=== PATIENT | male | born 1980 | race Caucasian/White ===

== ENCOUNTER 2021-12-31 10:34 | Outpatient (CLI) | payer BC, SELFPAY ==
[2021-12-31 17:41] LABS: Albumin* 4.8 g/dL (3.3-5.0); Chloride* 101 mmol/L (96-114); Potassium* 4.2 mmol/L (3.6-5.1); Sodium* 138 mmol/L (135-149)
[2021-12-31 17:43] LABS: Estimated Glomerular Filt Rate 97 ml/min
[2021-12-31 17:44] LABS: Alanine Aminotransferase* 22 U/L (4-50); Alkaline Phosphatase* 56 U/L (40-150); Aspartate Amino Transferase* 25 U/L (12-35); Bilirubin Direct* 0.3 mg/dL (0.0-0.5); Bilirubin Total* 0.7 mg/dL (0.1-1.5); Blood Urea Nitrogen* 14 mg/dL (5-24); Calcium* 9.6 mg/dL (8.4-10.6); Carbon Dioxide* 30 mmol/L (20-32); Glucose* 90 mg/dL (60-115); Lipase* 53 U/L (23-300); Total Protein* 7.1 g/dL (6.0-8.3)
== END 2021-12-31 10:35 | disposition home or self-care (01) ==
PROVIDERS: PCP Family Medicine; Visit Provider Family Medicine
DX: I10 Essential (primary) hypertension (principal); R10.9 Unspecified abdominal pain
CPT/HCPCS: 80048; 80076; 83690

== ENCOUNTER 2022-02-27 11:01 | Outpatient (CLI) | payer BC, SELFPAY ==
[2022-02-27 18:24] LABS: Chloride* 104 mmol/L (96-114); Potassium* 4.3 mmol/L (3.6-5.1); Sodium* 140 mmol/L (135-149)
[2022-02-27 18:27] LABS: Blood Urea Nitrogen* 17 mg/dL (5-24); Carbon Dioxide* 27 mmol/L (20-32); Estimated Glomerular Filt Rate 96 ml/min
[2022-02-27 18:28] LABS: Calcium* 9.2 mg/dL (8.4-10.6); Glucose* 86 mg/dL (60-115)
[2022-02-27 18:42] LABS: Free T4 Free Thyroxine* 0.99 ng/dL (0.70-1.85)
== END 2022-02-27 11:02 | disposition home or self-care (01) ==
LOC: LONREF 11:01
PROVIDERS: PCP Family Medicine; Visit Provider Family Medicine
DX: R63.4 Abnormal weight loss (principal)
CPT/HCPCS: 80048; 84439; 84443

== ENCOUNTER 2022-09-30 13:23 | Outpatient (CLI) | payer BC, SELFPAY | END 2022-09-30 13:24 | disposition home or self-care (01) | PROVIDERS: PCP Family Medicine; Visit Provider Family Medicine | DX: R53.83 Other fatigue (principal); I10 Essential (primary) hypertension; Z86.39 Personal history of other endocrine, nutritional and metabolic disease | CPT/HCPCS: 84439 ==

== ENCOUNTER 2023-06-10 10:50 | Outpatient (CLI) | payer BC, SELFPAY | END 2023-06-10 10:51 | disposition home or self-care (01) | PROVIDERS: PCP Family Medicine; Visit Provider Family Medicine | DX: I10 Essential (primary) hypertension (principal); R53.83 Other fatigue; M79.10 Myalgia, unspecified site; R68.82 Decreased libido | CPT/HCPCS: 80048; 84403; 84439; 84443; 86140 ==

== ENCOUNTER 2023-08-08 13:30 | Outpatient (CLI) | payer BC, SELFPAY | END 2023-08-08 13:31 | disposition home or self-care (01) | LOC: KYNREF 13:31 | PROVIDERS: PCP Family Medicine; Visit Provider Nurse Practitioner Family | DX: K62.5 Hemorrhage of anus and rectum (principal) | CPT/HCPCS: 85025 ==

== ENCOUNTER 2023-08-18 07:48 | Outpatient (CLI) | payer BC, SELFPAY ==
--- NOTE | 2023-08-18 09:29 | W.ANESCHARGE ---
Anesthesia Charges Start Date/Time Anesthesia Start Date: 08/18/23 Anesthesia Start Time: 09:00 Stop Date/Time Anesthesia Stop Date: 08/18/23 Anesthesia Stop Time: 09:30
--- NOTE | 2023-08-18 09:31 | W.ANESCHARGE ---
Anesthesia Charges Start Date/Time Anesthesia Start Date: 08/18/23 Anesthesia Start Time: 09:00 Stop Date/Time Anesthesia Stop Date: 08/18/23 Anesthesia Stop Time: 09:30
== END 2023-08-18 07:49 | disposition home or self-care (01) ==
LOC: OP CLINIC 07:49
PROVIDERS: PCP Family Medicine; Visit Provider Surgery
DX: R19.4 Change in bowel habit (principal); K62.1 Rectal polyp; K64.8 Other hemorrhoids; K62.89 Other specified diseases of anus and rectum
CPT/HCPCS: 00811; 45385; 88305; J2704

== ENCOUNTER 2024-05-08 20:48 | Emergency (ER) | payer BC, SELFPAY ==
[2024-05-08 21:03] VITALS: BP 135/94; PULSE 84; RESP 16; TEMP 38.7; O2SAT 97; BMI 27.0
--- NOTE | 2024-05-08 21:17 | ED.GENADULT ---
HPI - General Adult General Chief complaint: Fever Stated complaint: SOB, nausea, extreme headache Time Seen by Provider: 05/08/24 21:02 History of Present Illness HPI narrative: c/o BATISTA and Nausea pt. presents today with headache nausea but no vomiting. pt. has taken 800 mg Ibu. about 3 hours ago with no relief in pain. pt. states he feels like he is having difficulty getting a full breath 44-year-old man presenting to the emergency department with complaint of headache and some nausea. Began fairly intensely about 3 hours ago. Took 800 mg of ibuprofen without relief. Does have some body aches. No rashes. No measured fever. On triage is noted to have a fever of 101.6. No visual disturbances. Does not usually get headaches maybe 2 or 3 a year. No focal weakness. No particular exposures. He says that his headache is bilaterally periorbital and into his temples. Has not been particularly congested. He does feel that he is dehydrated. Related Data Previous Rx's ?Medication ?Instructions ?Recorded losartan 50 mg tablet 50 mg PO QDAY #90 tabs 06/10/23 alprazolam 0.5 mg tablet 0.5 - 1 mg (1 - 2 x 0.5 mg) PO TID 04/05/24 PRN anxiety #30 tabs Allergies Allergy/AdvReac Type Severity Reaction Status Date / Time No Known Drug Allergies Allergy Verified 05/09/24 14:21 Review of Systems Status of ROS: Reports: 6 or more systems reviewed and unremarkable except as noted in History and below [facility] Medical History History of hyperthyroidism ?Z86.39 - Personal history of other endocrine, nutritional and metabolic disease (ICD-10) Surgical History Status post orchiectomy ?Z90.79 - Acquired absence of other genital organ(s) (ICD-10) Status post tonsillectomy and adenoidectomy ?Z90.89 - Acquired absence of other organs (ICD-10) Social History Smoking Status: Current every day smoker What tobacco products do you use: cigarettes Do you use any of these nicotine containing products: None Second hand tobacco smoke exposure: No How often do you have a drink containing alcohol: never How often do you have six or more drinks on one occasion: Never AUDIT-C Alcohol total score: 0 Non-prescribed substance use: denies use service: No Exam Narrative: Exam Narrative: Pleasant. NAD. Appears generally uncomfortable. Shielding his eyes little bit from the light. Cranial nerves 2-12 are intact. Pupils are 3 mm and equal in appropriately reactive. Appears mildly congested in the nasopharynx. TMs are clear. All extremities without difficulties. No peripheral edema. He is well-perfused. Later exam does indicate some soreness in the paracervical and trapezial musculature left greater than right. Other than headache does not demonstrate meningeal with negative Brudzinski. Heart in regular rate and rhythm. Lungs are clear. Upper abdomen is soft and nontender. Const: Vital Signs, click to edit/add: Vital Signs - 24 hr 05/08/24 21:03 Temperature 101.6 F H Pulse Rate [Pulse Oximeter] 84 Respiratory Rate 16 Blood Pressure [Ri ght Upper Arm] 135/94 H Pulse Oximetry 97 Documenting provider has reviewed patient's vital signs: yes Course Vital Signs Vital signs: Initial Vital Signs Respiratory Effort Normal, Spontaneous, Non-Labored 05/08/24 21:00 Respiratory Depth Normal 05/08/24 21:00 Sepsis Recent Fever Within 48 Hours Yes 05/08/24 21:00 Sepsis Action Taken by Nursing No Action Required 05/08/24 21:00 Vital Signs Temperature 101.6 F H 05/08/24 21:03 Pulse Rate 84 05/08/24 21:03 Respiratory Rate 16 05/08/24 21:03 Blood Pressure 135/94 H 05/08/24 21:03 Pulse Oximetry 97 05/08/24 21:03 Temperature 101.6 F H 05/08/24 21:03 Pulse Rate 84 05/08/24 21:03 Respiratory Rate 16 05/08/24 21:03 Blood Pressure 135/94 H 05/08/24 21:03 Pulse Oximetry 97 05/08/24 21:03 Medications Administered Medications: Discontinued Medications Generic Name Dose Route Start Last Admin Trade Name Freq PRN Reason Stop Dose Admin Sodium Chloride 1,000 mls @ 1,000 mls/hr 05/08/24 21:32 05/08/24 22:00 0.9 % Sodium Chloride 1000 Ml IV 05/08/24 22:31 Infused .Q1H ONE Infusion Ketorolac Tromethamine 30 mg 05/08/24 21:32 05/08/24 21:40 Ketorolac 30 Mg/Ml Inj IVP 05/08/24 21:33 30 mg ONCE ONE Administration Ondansetron HCl 4 mg 05/08/24 21:32 05/08/24 21:40 Ondansetron 2 Mg/Ml Inj IVP 05/08/24 21:33 4 mg ONCE ONE Administration Medical Decision Making MDM Narrative Medical decision making narrative: Appears to have fever and associated headache. Considering community prevalence I would expect to diagnosis influenza A are possibly COVID. I would screen for these. Did offer treatment for symptoms. I do not think has meningitis otherwise at this time. He is mentating clearly as well without evidence of encephalitis. Probably has some component of tension headache though with periorbital sinus very discomfort may be sinus related. Does not demonstrate symptoms otherwise of cluster headache and this is not unilateral. He does mention this is the worst headache he has had. I would focus on infectious/illness as opposed to intracranial event like a bleed pending improvement in treatment. IV was initiated. Was given normal saline, ketorolac and Zofran. Swabs are negative. On reassessment was improved. Fever resolved. Still with some residual headache around his eyes we discussed potential benefit of intranasal lidocaine. I did mist 1% lidocaine into both nares. This resulted in some further improvement. He felt he could go home and continue to monitor. He is wondering what he can take for headache. I would focus on fever control as well. Hydrate. See patient discharge plan for further discussion Focus on hydration. You might benefit from pseudoephedrine for decongestion. I like the 12 hour formulation myself Sleep under the mist of a cool mist humidifier Can take up to 800 mg ibuprofen up to 1000 mg of acetaminophen per dose; these can be combined. Alternative the ibuprofen might be up to 500 mg naproxen 2 times daily. Otherwise for headache I take Excedrin equivalent sometimes has discussed. Zofran from [facility] for nausea Medical Records Medical records reviewed: Yes I reviewed the patient's medical records Lab Data Lab results reviewed: Yes I reviewed the patient's lab results Labs: Lab Results 05/08/24 Range/Units 21:01 SARS-CoV-2 (PCR) Negative SARS-CoV-2 (Negative) Influenza Type A (PCR) Negative PCR FLU A (Negative) Influenza Type B (PCR) Negative PCR FLU B (Negative) RSV (PCR) Negative PCR RSV (Negative) Discharge Plan Discharge Clinical Impression: Headache, Myalgia, Fever Patient Disposition: Home w/ Parent or Adult Condition: Improved Additional Instructions: Focus on hydration. You might benefit from pseudoephedrine for decongestion. I like the 12 hour formulation myself Sleep under the mist of a cool mist humidifier Can take up to 800 mg ibuprofen up to 1000 mg of acetaminophen per dose; these can be combined. Alternative the ibuprofen might be up to 500 mg naproxen 2 times daily. Otherwise for headache I take Excedrin equivalent sometimes has discussed. Zofran from [facility] for nausea Prescriptions: No Action losartan 50 mg tablet 50 mg PO QDAY Qty: 90 3RF alprazolam 0.5 mg tablet 0.5 - 1 mg PO TID PRN (Reason: anxiety) Qty: 30 2RF Follow Up/Referrals: Everett Roldan MD [Primary Care Provider] - Stand Alone Forms: [employer] Info Instructions
[2024-05-08] MEDS: 0.9 % SODIUM CHLORIDE 1000 ml 1,000 ML IV (21:40)
[2024-05-08] MEDS: KETOROLAC 30 MG/ML inj IVP (21:40)
[2024-05-08] MEDS: ONDANSETRON 2 MG/ML inj 4 MG IVP (21:40)
[2024-05-08 21:51] LABS: PCR FLU A Negative PCR FLU A (Negative); PCR FLU B Negative PCR FLU B (Negative); PCR RSV Negative PCR RSV (Negative); SARS PCR* Negative SARS-CoV-2 (Negative)
== END 2024-05-08 22:42 | disposition home or self-care (01) ==
PROVIDERS: Emergency Provider Family Medicine; PCP Family Medicine
DX: R51.9 Headache, unspecified (principal); R50.9 Fever, unspecified
CPT/HCPCS: 87631; 96374; 96375; 99284; J1885; J2405; J7030

== ENCOUNTER 2024-05-09 14:02 | Emergency (ER) | payer BC, SELFPAY ==
[2024-05-09] VITALS (22 sets, daily range): BP systolic 125–144; BP diastolic 77–91; PULSE 62–77; RESP 12–18; TEMP 36.9; O2SAT 93–99; BMI 27.0
--- NOTE | 2024-05-09 14:47 | CRLHL7_ITS ---
For Patients: As a result of the Century Cures Act, medical imaging exams and procedure reports are released immediately into your electronic medical record. You may view this report before your referring provider. If you have questions, please contact your health care provider. Indication: Headache. Technique: CT of the brain was performed without intravenous contrast. Comparison: MR brain 12/01/2020. Findings: No acute blurring of the weems-white differentiation. There is no intracranial hemorrhage. The ventricles are proportionate to the cerebral sulci. The 4th ventricle is midline. Basal cisterns appear patent. No abnormal extra-axial fluid collection identified. There is no intracranial mass, mass effect or midline shift identified. No depressed calvarial fracture. Impression: No acute intracranial process. Please note that all CT scans at this facility use dose modulation, iterative reconstruction, and/or weight-based dosing when appropriate to reduce radiation dose to as low as reasonably achievable. Dictated by Félix Rubio MD @ 05/09/2024 3:36:09 PM (Electronically Signed)
--- NOTE | 2024-05-09 14:48 | ED.HA ---
HPI - Headache General Chief Complaint: Headache/Migraine Stated Complaint: piercing headache, nausea Time Seen by Provider: 05/09/24 14:05 History of Present Illness HPI Narrative: This 44-year-old male comes in with severe headache including nausea and light sensitivity. He was here last evening with same headache and had temporary relief with some IV medicines are administered at that time. He states that he does not normally get headaches. Perhaps twice a year he gets a headache that is easily treated with [id number] medicines. He does not report any fevers. He has pain in his upper neck but not down into his back. He does not report any neurologic changes. Related Data Previous Rx's ?Medication ?Instructions ?Recorded losartan 50 mg tablet 50 mg PO QDAY #90 tabs 06/10/23 alprazolam 0.5 mg tablet 0.5 - 1 mg (1 - 2 x 0.5 mg) PO TID 04/05/24 PRN anxiety #30 tabs Allergies Allergy/AdvReac Type Severity Reaction Status Date / Time No Known Drug Allergies Allergy Verified 05/09/24 14:21 Review of Systems Status of ROS: Reports: 10 or more systems reviewed and unremarkable except as noted in History and below Narrative: Constitutional: No fevers, no weight gain or loss. Eyes: No discharge. No vision changes. HENT: No congestion, no sore throat, no ear pain. Cardiovascular: No chest pain, no palpitations. Respiratory: No shortness of breath, no wheezes, no cough. Gastrointestinal: No abdominal pain, no vomiting, no diarrhea. Genitourinary: No dysuria, no hematuria. Musculoskeletal: Normal range of motion. Skin: No rashes, no pruritis. Neurological: No dizziness, weakness, sensory change, speech change. Endo/Heme/Allergies: No bruising or bleeding. No polydipsia. Pysch: no suicidality, no anxiety, no insomnia. All other systems reviewed and are negative. [facility] Medical History History of hyperthyroidism ?Z86.39 - Personal history of other endocrine, nutritional and metabolic disease (ICD-10) Surgical History Status post orchiectomy ?Z90.79 - Acquired absence of other genital organ(s) (ICD-10) Status post tonsillectomy and adenoidectomy ?Z90.89 - Acquired absence of other organs (ICD-10) Social History Smoking Status: Current every day smoker What tobacco products do you use: cigarettes Do you use any of these nicotine containing products: None Second hand tobacco smoke exposure: No How often do you have a drink containing alcohol: never How often do you have six or more drinks on one occasion: Never AUDIT-C Alcohol total score: 0 Non-prescribed substance use: denies use service: No Exam Narrative: Exam Narrative: Constitutional: Well-developed, well-nourished, no acute distress. HEENT: Normocephalic, atraumatic. Neck: Normal range of motion. Nontender. Supple. Heart: Regular. No murmurs. Normal rate. Intact distal pulses. Lungs: Clear to auscultation. No chest discomfort. No wheezes, rhonchi, or rales. Abdomen: Normal bowel sounds. Nontender. No rebound tenderness. Genitalia: Deferred. Back: No midline tenderness. Normal range of motion. Extremities: Normal range of motion. No injury. Skin: Intact. No rash. Warm. No erythema or pallor. Neurologic: No altered sensation. No weakness. Alert and oriented. No facial asymmetry. Psychiatric: No suicidality. No anxiety or depression. No insomnia. Nursing notes and vitals signs are reviewed. Const: Vital Signs, click to edit/add: Vital Signs - 24 hr 05/09/24 14:21 05/09/24 15:41 05/09/24 15:45 Temperature 98.4 F Pulse Rate 62 65 Pulse Rate [Pulse Oximeter] 62 Respiratory Rate 18 Blood Pressure Blood Pressure [Ri ght Upper Arm] 141/89 H Pulse Oximetry 98 97 97 Oxygen Delivery Me thod Room Air 05/09/24 16:00 05/09/24 16:05 05/09/24 16:06 Temperature Pulse Rate 62 69 63 Pulse Rate [Pulse Oximeter] Respiratory Rate 12 Blood Pressure 144/81 H Blood Pressure [Ri ght Upper Arm] Pulse Oximetry 97 97 97 Oxygen Delivery Me thod 05/09/24 16:15 05/09/24 16:30 05/09/24 16:45 Temperature Pulse Rate 69 69 77 Pulse Rate [Pulse Oximeter] Respiratory Rate Blood Pressure Blood Pressure [Ri ght Upper Arm] Pulse Oximetry 96 96 98 Oxygen Delivery Me thod 05/09/24 17:00 05/09/24 17:15 05/09/24 17:30 Temperature Pulse Rate 71 76 65 Pulse Rate [Pulse Oximeter] Respiratory Rate Blood Pressure Blood Pressure [Ri ght Upper Arm] Pulse Oximetry 96 97 96 Oxygen Delivery Me thod 05/09/24 17:45 05/09/24 18:00 05/09/24 18:15 Temperature Pulse Rate 72 73 70 Pulse Rate [Pulse Oximeter] Respiratory Rate Blood Pressure Blood Pressure [Ri ght Upper Arm] Pulse Oximetry 96 96 94 Oxygen Delivery Me thod 05/09/24 18:17 05/09/24 18:44 Temperature 98.5 F Pulse Rate Pulse Rate [Pulse Oximeter] Respiratory Rate Blood Pressure 125/77 Blood Pressure [Ri ght Upper Arm] Pulse Oximetry Oxygen Delivery Me thod Course Vital Signs Vital signs: Initial Vital Signs Temperature 98.4 F 05/09/24 14:21 Temperature Source Temporal Artery Scan 05/09/24 14:21 Pulse Rate 62 05/09/24 14:21 Pulse Rhythm Regular 05/09/24 14:21 Respiratory Rate 18 05/09/24 14:21 Blood Pressure 141/89 H 05/09/24 14:21 Blood Pressure Mean 106 H 05/09/24 14:21 Blood Pressure Position Semi-Fowlers 05/09/24 14:21 Pulse Oximetry 98 05/09/24 14:21 Oxygen Delivery Method Room Air 05/09/24 14:21 Vital Signs Temperature 98.4 F 05/09/24 14:21 Pulse Rate 62 05/09/24 14:21 Respiratory Rate 18 05/09/24 14:21 Blood Pressure 141/89 H 05/09/24 14:21 Pulse Oximetry 98 05/09/24 14:21 Oxygen Delivery Method Room Air 05/09/24 14:21 Temperature 98.5 F 05/09/24 18:44 Pulse Rate 70 05/09/24 18:15 Respiratory Rate 12 05/09/24 16:05 Blood Pressure 125/77 05/09/24 18:17 Pulse Oximetry 94 05/09/24 18:15 Oxygen Delivery Method Room Air 05/09/24 14:21 Medications Administered Medications: Generic Name Dose Route Start Last Admin Trade Name Cheng PRN Reason Stop Dose Admin Ketamine HCl 20 mg/ Sodium 100.2 mls @ 300.6 mls/hr 05/09/24 16:53 05/09/24 18:11 Chloride IVPB 05/09/24 16:54 300.6 mls/hr ONCE ONE Administration Discontinued Medications Generic Name Dose Route Start Last Admin Trade Name Cheng PRN Reason Stop Dose Admin Diphenhydramine HCl 50 mg 05/09/24 14:46 05/09/24 15:21 Diphenhydramine 50 Mg/Ml Inj IVP 05/09/24 14:47 50 mg ONCE ONE Administration Sodium Chloride 500 mls @ 500 mls/hr 05/09/24 14:46 05/09/24 16:21 0.9 % Sodium Chloride 500 Ml IV 05/09/24 15:45 Infused .Q1H ONE Infusion Ketorolac Tromethamine 30 mg 05/09/24 14:46 05/09/24 15:20 Ketorolac 30 Mg/Ml Inj IVP 05/09/24 14:47 30 mg ONCE ONE Administration Methylprednisolone Sodium Succinate 125 mg 05/09/24 14:46 05/09/24 15:20 Methylprednisolone Sod Succ 62.5 Mg/Ml (125) IVP 05/09/24 14:47 125 mg ONCE ONE Administration Ondansetron HCl 4 mg 05/09/24 14:46 05/09/24 15:20 Ondansetron 2 Mg/Ml Inj IVP 05/09/24 14:47 4 mg ONCE ONE Administration MDM - Headache MDM Narrative Medical decision making narrative: This patient was in last evening in returns again today because of severe headache. He does arrive here with normal vital signs. He does not describe any symptoms of infection. He received treatments last evening that helped him temporarily but returns today because his headache is persistent and return back to previous severe state. An IV was established where he received Toradol 30 mg, Benadryl 50 mg, Zofran 4 mg, and methylprednisolone 125 mg. This did not help him much however he was able to sleep. He then received ketamine 20 mg again without much relief. His CT scan of his head and blood results all returned with normal findings. He is okay to be discharged home. I did provide an [facility] prescription for Toradol. He states that he does have Zofran at home. Lab Data Labs: Lab Results 05/09/24 Range/Units 15:00 WBC 8.95 (4.50-11.00) K/uL RBC 4.51 (4.30-5.90) m/uL Hgb 14.7 (13.5-17.5) gm/dL Hct 42.6 (37.0-53.0) % MCV 95 (80-100) fL MCH 33 (26-34) pg MCHC 35 (32-36) gm/dL RDW Coeff of Paul 12.5 (11.5-15.5) % Plt Count 165 (140-440) K/uL Neut % (Auto) 77.7 H (42.0-72.0) % Lymph % (Auto) 10.3 L (20-44) % Hamblen % (Auto) 10.8 (0.0-11.0) % Eos % (Auto) 0.4 (0.0-7.0) % Baso % (Auto) 0.2 (0.0-3.0) % Neut # (Auto) 7.00 (1.7-7.0) K/uL Lymph # (Auto) 0.90 (0.90-2.90) K/uL Hamblen # (Auto) 1.00 H (0.00-0.90) K/UL Eos # (Auto) 0.04 (0.00-0.50) K/uL Baso # (Auto) 0.02 (0.00-0.30) K/uL Abs Immat Gran (auto) 0.05 (0.00-0.30) K/uL Imm/Tot Granulo (auto) 0.6 % Imaging Data CT scan - head: Radiologist's impression: No acute intracranial process. Discharge Plan Discharge Clinical Impression: Migraine Patient Disposition: Home, Self-Care Condition: Stable Additional Instructions: Take medication as prescribed. Follow up with MD return if worsening. Prescriptions: No Action losartan 50 mg tablet 50 mg PO QDAY Qty: 90 3RF alprazolam 0.5 mg tablet 0.5 - 1 mg PO TID PRN (Reason: anxiety) Qty: 30 2RF Follow Up/Referrals: Everett Roldan MD [Primary Care Provider] - Stand Alone Forms: [employer] Info Instructions
[2024-05-09] MEDS: 0.9 % SODIUM CHLORIDE 500 ML 500 ML IV (15:20)
[2024-05-09] MEDS: METHYLPREDNISOLONE SOD SUCC 62.5 MG/ML (125) 125 MG IVP (15:20)
[2024-05-09] MEDS: ONDANSETRON 2 MG/ML inj 4 MG IVP (15:20)
[2024-05-09] MEDS: KETOROLAC 30 MG/ML inj IVP (15:20)
[2024-05-09 15:21] LABS: Basophils Absolute Auto 0.02 K/uL (0.00-0.30); Basophils Percent Auto 0.2 % (0.0-3.0); Eosinophils Absolute Auto 0.04 K/uL (0.00-0.50); Eosinophils Percent Auto 0.4 % (0.0-7.0); Hematocrit 42.6 % (37.0-53.0); Hemoglobin* 14.7 gm/dL (13.5-17.5); Immature Granulocytes Abs Auto 0.05 K/uL (0.00-0.30); Immature Granulocytes Pct Auto 0.6 %; Lymphocytes Percent Auto 10.3 % (20-44); Mean Corpuscular HGB Conc 35 gm/dL (32-36); Mean Corpuscular Hemoglobin 33 pg (26-34); Mean Corpuscular Volume 95 fL (80-100); Monocytes Percent Auto 10.8 % (0.0-11.0); Neutrophils Percent Auto 77.7 % (42.0-72.0); Platelet Count* 165 K/uL (140-440); RDW Coefficient of Variation % 12.5 % (11.5-15.5); Red Blood Count 4.51 m/uL (4.30-5.90); White Blood Count* 8.95 K/uL (4.50-11.00)
[2024-05-09] MEDS: diphenhydrAMINE 50 MG/ML inj IVP (15:21)
[2024-05-09 15:24] LABS: Slide Review Reflex No
[2024-05-09] MEDS: KETAMINE HCL 20 MG in 0.9 % SODIUM CHLORIDE 100 ml 100 ML 300.6 MG IVPB (18:11)
== END 2024-05-09 19:14 | disposition home or self-care (01) ==
PROVIDERS: Emergency Provider Emergency Medicine Emergency Medical Services; PCP Family Medicine
DX: G43.909 Migraine, unspecified, not intractable, without status migrainosus (principal)
CPT/HCPCS: 36415; 70450; 85025; 96365; 96375; 99284; J1200; J1885; J2405; J2919; J3490; J7030

== ENCOUNTER 2024-05-17 11:58 | Emergency (ER) | payer BC, SELFPAY ==
[2024-05-17 12:05] VITALS: BP 147/98; PULSE 81; RESP 18; TEMP 37.7; O2SAT 97; BMI 26.3
[2024-05-17 12:20] VITALS: BP 131/100; PULSE 76; TEMP 37.2; O2SAT 94
--- NOTE | 2024-05-17 13:14 | CRLHL7_ITS ---
For Patients: As a result of the Century Cures Act, medical imaging exams and procedure reports are released immediately into your electronic medical record. You may view this report before your referring provider. If you have questions, please contact your health care provider. Indication: Severe headache times several days Technique: Multiplanar, multisequence MR images of the brain were obtained without the administration of IV contrast. Comparison: CT head May 09, 2024 and MRI brain December 01, 2020 Findings: On midline sagittal T1 images there are preserved flow voids within the sagittal sinuses. The corpus callosum is preserved in signal and contour. The pituitary gland is unremarkable without evidence of remodeling of the sella turcica. There is no significant cerebellar tonsillar ectopia. On diffusion-weighted sequences, there is no evidence of acute or subacute infarct. On blood sensitive sequences, there is no evidence of or chronic hemorrhage. There is minimal nonspecific T2/FLAIR subcortical and periventricular hyperintensity appreciated. Otherwise, the brain parenchyma is preserved in signal intensity for age. The flow voids at the skull base are unremarkable. The orbits and their contents are within normal limits. The paranasal sinuses are clear. The mastoid air cells are clear. Impression: 1. Minimal nonspecific chronic small-vessel disease changes of the white matter similar to remote prior without evidence of new acute intracranial abnormality. Dictated by Edison Lucero MD @ 05/17/2024 4:26:26 PM (Electronically Signed)
[2024-05-17 13:37] LABS: Basophils Percent Auto 0.3 % (0.0-3.0); Eosinophils Percent Auto 0.4 % (0.0-7.0); Hematocrit 44.9 % (37.0-53.0); Hemoglobin* 15.3 gm/dL (13.5-17.5); Immature Granulocytes Pct Auto 0.7 %; Lymphocytes Percent Auto 14.6 % (20-44); Mean Corpuscular HGB Conc 34 gm/dL (32-36); Mean Corpuscular Hemoglobin 32 pg (26-34); Mean Corpuscular Volume 95 fL (80-100); Monocytes Percent Auto 4.5 % (0.0-11.0); Neutrophils Percent Auto 79.5 % (42.0-72.0); Platelet Count* 287 K/uL (140-440); RDW Coefficient of Variation % 12.7 % (11.5-15.5); Red Blood Count 4.72 m/uL (4.30-5.90); White Blood Count* 11.69 K/uL (4.50-11.00)
[2024-05-17 13:42] LABS: Slide Review Reflex No
[2024-05-17 14:00] LABS: C Reactive Protein* < 0.5 mg/dL (0.5-1.0)
[2024-05-17 14:12] LABS: Free T4 Free Thyroxine* 1.07 ng/dL (0.70-1.85)
[2024-05-17 14:23] LABS: Erythrocyte SedimentationRate* 2 mm/hr (2-15)
[2024-05-17 14:29] VITALS: BP 124/79; PULSE 71; RESP 18; TEMP 37.6; O2SAT 95
--- NOTE | 2024-05-17 16:00 | ED.HA ---
HPI - Headache General Chief Complaint: Headache/Migraine Stated Complaint: Migraine/Shingles Time Seen by Provider: 05/17/24 12:24 History of Present Illness HPI Narrative: This 44-year-old male comes in with persistent severe headache. He has been seen a couple times here in the emergency department with similar symptoms and also presented to clinic during these past 8-10 days. He states that he normally does not get headache. At a clinic visit it was noted that he had a rash on his leg that was suspicious for shingles. He is currently taking Valtrex and prednisone. He states that he continues to have headache but does not report any fevers or significant neck discomfort or stiffness. I did see him previously and discussed various causes for his headache and ordered blood and CT imaging which returned with negative findings. The patient has received IV doses of nonnarcotic medicines to treat his headache which brought some minimal relief. Related Data Home Medications ?Medication ?Instructions ?Recorded ?Confirmed ketorolac 10 mg tablet 10 mg PO QID 05/10/24 05/17/24 Previous Rx's ?Medication ?Instructions ?Recorded losartan 50 mg tablet 50 mg PO QDAY #90 tabs 06/10/23 alprazolam 0.5 mg tablet 0.5 - 1 mg (1 - 2 x 0.5 mg) PO TID 04/05/24 PRN anxiety #30 tabs ondansetron 4 mg disintegrating See Rx Instructions PO .ud PRN 05/10/24 tablet nausea and vomiting #30 tabs prednisone 20 mg tablet See Rx Instructions PO .ud #15 tabs 05/10/24 valacyclovir 1 gram tablet 1,000 mg PO TID #21 tabs 05/10/24 hydrocodone 5 mg-acetaminophen 325 1 tab PO Q4-6H PRN pain #7 tabs 05/12/24 mg tablet Allergies Allergy/AdvReac Type Severity Reaction Status Date / Time No Known Drug Allergies Allergy Verified 05/17/24 12:12 Review of Systems Status of ROS: Reports: 10 or more systems reviewed and unremarkable except as noted in History and below Narrative: Constitutional: No fevers, no weight gain or loss. Eyes: No discharge. No vision changes. HENT: No congestion, no sore throat, no ear pain. Cardiovascular: No chest pain, no palpitations. Respiratory: No shortness of breath, no wheezes, no cough. Gastrointestinal: No abdominal pain, no vomiting, no diarrhea. Genitourinary: No dysuria, no hematuria. Musculoskeletal: Normal range of motion. Skin: No rashes, no pruritis. Neurological: No dizziness, weakness, sensory change, speech change. Endo/Heme/Allergies: No bruising or bleeding. No polydipsia. Pysch: no suicidality, no anxiety, no insomnia. All other systems reviewed and are negative. [facility] Medical History Tobacco use ?Z72.0 - Tobacco use (ICD-10) Hypertension ?I10 - Essential (primary) hypertension (ICD-10) Rectal pain ?K62.89 - Other specified diseases of anus and rectum (ICD-10) Rectal bleeding ?K62.5 - Hemorrhage of anus and rectum (ICD-10) Genital warts ?A63.0 - Anogenital (venereal) warts (ICD-10) Low libido ?R68.82 - Decreased libido (ICD-10) Anxiety ?F41.9 - Anxiety disorder, unspecified (ICD-10) Family history of diabetes mellitus ?Z83.3 - Family history of diabetes mellitus (ICD-10) Shingles ?B02.9 - Zoster without complications (ICD-10) History of hyperthyroidism ?Z86.39 - Personal history of other endocrine, nutritional and metabolic disease (ICD-10) Surgical History Status post orchiectomy ?Z90.79 - Acquired absence of other genital organ(s) (ICD-10) Status post tonsillectomy and adenoidectomy ?Z90.89 - Acquired absence of other organs (ICD-10) Social History Smoking Status: Current every day smoker What tobacco products do you use: cigarettes Do you use any of these nicotine containing products: None Second hand tobacco smoke exposure: No How often do you have a drink containing alcohol: never How often do you have six or more drinks on one occasion: Never AUDIT-C Alcohol total score: 0 Non-prescribed substance use: denies use service: No Exam Narrative: Exam Narrative: Constitutional: Well-developed, well-nourished, no acute distress. HEENT: Normocephalic, atraumatic. Neck: Normal range of motion. Nontender. Supple. Heart: Regular. No murmurs. Normal rate. Intact distal pulses. Lungs: Clear to auscultation. No chest discomfort. No wheezes, rhonchi, or rales. Abdomen: Normal bowel sounds. Nontender. No rebound tenderness. Genitalia: Deferred. Back: No midline tenderness. Normal range of motion. Extremities: Normal range of motion. No injury. Skin: Intact. No rash. Warm. No erythema or pallor. Neurologic: No altered sensation. No weakness. Alert and oriented. Psychiatric: No suicidality. No anxiety or depression. No insomnia. Nursing notes and vitals signs are reviewed. Const: Vital Signs, click to edit/add: Vital Signs - 24 hr 05/17/24 12:05 05/17/24 12:20 05/17/24 14:29 Temperature 100 F H 99.0 F 99.7 F H Pulse Rate [Right Pulse Oximeter] 81 76 71 Respiratory Rate 18 18 Blood Pressure [Ri t Upper Arm] 147/98 H 131/100 H 124/79 Pulse Oximetry 97 94 95 Oxygen Delivery Me thod Room Air Room Air Room Air Course Vital Signs Vital signs: Initial Vital Signs Temperature 100 F H 05/17/24 12:05 Temperature Source Temporal Artery Scan 05/17/24 12:05 Pulse Rate 81 05/17/24 12:05 Pulse Rhythm Regular 05/17/24 12:05 Pulse Strength 3+ Normal 05/17/24 12:05 Respiratory Rate 18 05/17/24 12:05 Blood Pressure 147/98 H 05/17/24 12:05 Blood Pressure Mean 114 H 05/17/24 12:05 Blood Pressure Position Sitting 05/17/24 12:05 Pulse Oximetry 97 05/17/24 12:05 Oxygen Delivery Method Room Air 05/17/24 12:05 Vital Signs Temperature 100 F H 05/17/24 12:05 Pulse Rate 81 05/17/24 12:05 Respiratory Rate 18 05/17/24 12:05 Blood Pressure 147/98 H 05/17/24 12:05 Pulse Oximetry 97 05/17/24 12:05 Oxygen Delivery Method Room Air 05/17/24 12:05 Temperature 99.7 F H 05/17/24 14:29 Pulse Rate 71 05/17/24 14:29 Respiratory Rate 18 05/17/24 14:29 Blood Pressure 124/79 05/17/24 14:29 Pulse Oximetry 95 05/17/24 14:29 Oxygen Delivery Method Room Air 05/17/24 14:29 MDM - Headache MDM Narrative Medical decision making narrative: This patient has persistent headache which is severe by his report. He has normal vital signs. His temperature initially was at 100? F. he is not tripping a lot a triggers that are suspicious for meningitis. Nevertheless I did discuss the diagnostic tool of lumbar puncture which he considered but states in a process of shared decision making that he would for go this for now. Seeing that he has had 3 previous visits regarding these symptoms I did order an MRI of his brain. Results for this test are pending beyond the end of my shift so the oncoming ER physician will look after results. Lab results to returned with normal findings. I asked him about possibility of new exposures at his work setting which may be causing headache. He states that he did return to work and after about an hour he had to leave because his symptoms have worsened. Lab Data Labs: Lab Results 05/17/24 Range/Units 13:28 WBC 11.69 H (4.50-11.00) K/uL RBC 4.72 (4.30-5.90) m/uL Hgb 15.3 (13.5-17.5) gm/dL Hct 44.9 (37.0-53.0) % MCV 95 (80-100) fL MCH 32 (26-34) pg MCHC 34 (32-36) gm/dL RDW Coeff of Paul 12.7 (11.5-15.5) % Plt Count 287 (140-440) K/uL Neut % (Auto) 79.5 H (42.0-72.0) % Lymph % (Auto) 14.6 L (20-44) % [place] % (Auto) 4.5 (0.0-11.0) % Eos % (Auto) 0.4 (0.0-7.0) % Baso % (Auto) 0.3 (0.0-3.0) % Neut # (Auto) 9.30 H (1.7-7.0) K/uL Lymph # (Auto) 1.70 (0.90-2.90) K/uL [place] # (Auto) 0.50 (0.00-0.90) K/UL Eos # (Auto) 0.00 (0.00-0.50) K/uL Baso # (Auto) 0.00 (0.00-0.30) K/uL Abs Immat Gran (auto) 0.10 (0.00-0.30) K/uL Imm/Tot Granulo (auto) 0.7 % ESR 2 (2-15) mm/hr C-Reactive Protein < 0.5 L (0.5-1.0) mg/dL TSH 1.430 (0.270-4.20) uIU/mL Free T4 1.07 (0.70-1.85) ng/dL Discharge Plan Discharge Clinical Impression: Headache Qualifiers: Headache type: unspecified Headache chronicity pattern: acute headache Intractability: intractable Qualified Code(s): R51.9 - Headache, unspecified Prescriptions: No Action losartan 50 mg tablet 50 mg PO QDAY Qty: 90 3RF ketorolac 10 mg tablet 10 mg PO QID Rx Instructions: maximum total duration of 5 days from all oral, intranasal, or parenteral formulations valacyclovir 1 gram tablet 1,000 mg PO TID Qty: 21 0RF ondansetron 4 mg tablet,disintegrating See Rx Instructions PO .ud PRN (Reason: nausea and vomiting) Qty: 30 0RF Rx Instructions: 4-8 mg Q6H prn nausea orally UD PRN; prednisone 20 mg tablet See Rx Instructions PO .ud Qty: 15 0RF Rx Instructions: 20 mg bid for 5D, then 20 mg QD for 5D. Take with food orally UD; alprazolam 0.5 mg tablet 0.5 - 1 mg PO TID PRN (Reason: anxiety) Qty: 30 2RF hydrocodone-acetaminophen 5-325 mg tablet 1 tab PO Q4-6H PRN (Reason: pain) Qty: 7 0RF Follow Up/Referrals: Everett Roldan MD [Primary Care Provider] -
[2024-05-17 16:30] VITALS: BP 124/86; PULSE 62; RESP 18; TEMP 38; O2SAT 98
== END 2024-05-17 17:11 | disposition home or self-care (01) ==
PROVIDERS: Emergency Provider Emergency Medicine Emergency Medical Services; PCP Family Medicine
DX: R51.9 Headache, unspecified (principal)
CPT/HCPCS: 36415; 70551; 84439; 84443; 85025; 85651; 86140; 99283; 99284

== ENCOUNTER 2024-11-20 12:02 | Outpatient (CLI) | payer BC, SELFPAY | END 2024-11-20 12:03 | disposition home or self-care (01) | PROVIDERS: PCP Family Medicine; Visit Provider Family Medicine | DX: R61 Generalized hyperhidrosis (principal); R63.4 Abnormal weight loss; R53.83 Other fatigue | CPT/HCPCS: 80048; 84439; 84443 ==